=== PATIENT | female | born 1980 | race African-American/Black ===

== ENCOUNTER 2017-04-01 17:57 | Emergency (ER) | payer OTHER ==
--- NOTE | ~2017-04-01 | CR21 ---
[facility] A Service of [facility] & [facility] / [facility] RADIOLOGY TEXT RESULTS PATIENT: BJ GHOTRA LOCATION: CFTX : 78 UNIT #: [id number] AGE: [address]: OUSMANE PALM APRN SEX: F ORDER DR: [id number] [facility]. [place], [place] [address] [id number] MR#: [id number] Acc #: [id number] NAME: BJ GHOTRA : 1980 SEX: F STUDY DATE/TIME: 04/01/2017 18:20 UNIT: [facility] ROOM: STUDY DESCRIPTION: CR Ankle Min 3 Views Rt Attending Physician: Ousmane Palm Aprn Ordering Physician: Celeste Herr M.D. Primary Care Physician: Primary Care Physician No MEDICAL IMAGING REPORT This report is preliminary unless electronic signature is present EXAM Right ankle 3 views HISTORY Lateral ankle pain and swelling for 3 weeks after twisting injury. FINDINGS 3 views of the right ankle demonstrate soft tissue swelling over the lateral malleolus. Bone alignment is normal. No joint space narrowing. No fracture or dislocation. IMPRESSION 1. No fracture. 2. Soft tissue swelling over the lateral malleolus. Dictated by... Chuck Dominique M.D. THIS IS AN ELECTRONICALLY VERIFIED REPORT Chuck Dominique M.D. at 04/02/2017 3:03 PM MANUELA/val TD: 04/02/2017 06:33 JOB #: [id number] MEDICAL IMAGING REPORT Page 1 of 1 COPY
== END 2017-04-01 21:40 | disposition home or self-care (01) ==
LOC: CFTX 17:57 → CED 17:57 → CFTX 20:16
DX: S93.401A Sprain of unspecified ligament of right ankle, initial encounter (principal); F17.210 Nicotine dependence, cigarettes, uncomplicated; X50.1XXA Overexertion from prolonged static or awkward postures, initial encounter; Y92.009 Unspecified place in unspecified non-institutional (private) residence as the place of occurrence of the external cause
CPT/HCPCS: 29405; 29540; 73610; 99283